=== PATIENT | male | born 1975 | race Caucasian/White ===

== ENCOUNTER 2023-12-09 04:25 | Day surgery (SDC) | payer OTHER ==
[2023-11-26 15:11] VITALS: BMI 25.9
[2023-12-09 08:49] VITALS: RESP 16
[2023-12-09 11:48] LABS: BASO % 0.4 % (0-2.0); EOS % 1.9 % (0-4.5); HEMATOCRIT 45.3 % (35.4-49); HEMOGLOBIN 15.8 GM/dL (11.7-16.9); LYMPH % 28.9 % (8-40); MCHC 34.8 g/dl (32.0-35.9); MEAN CELL VOLUME 91.9 fl (80-96); MEAN PLT VOLUME 7.2 fl (7.5-11.1); MONO % 8.6 % (3.8-10.2); NEUT % 60.2 % (42.8-82.8); PLATELET COUNT 265 10^3/uL (134-434); RBC 4.93 M/mm3 (4.00-5.60); RDW 12.5 % (11.9-15.9); WHITE BLOOD COUNT 7.5 K/mm3 (4.0-10.0)
[2023-12-09 11:54] LABS: INR 1.03 (0.83-1.09); PROTHROMBIN TIME (PATIENT) 11.8 SEC (9.7-13.0)
[2023-12-09 12:12] LABS: CHLORIDE 107 mmol/L (98-107); POTASSIUM 4.5 mmol/L (3.5-5.1); SODIUM 141 mmol/L (136-145)
[2023-12-09 12:14] LABS: ALBUMIN 3.8 g/dl (3.4-5.0); ANION GAP 3 mmol/L (4-13); BLOOD UREA NITROGEN 18.1 mg/dL (7-18); CALCIUM 9.2 mg/dL (8.5-10.1); CO2 31 mmol/L (21-32)
[2023-12-09 12:15] LABS: GLUCOSE,RANDOM 92 mg/dL (74-106)
[2023-12-09 12:16] LABS: SGOT/AST 20 U/L (15-37)
[2023-12-09 12:19] LABS: ALK PHOS 57 U/L (45-117); BILIRUBIN,TOTAL 1.4 mg/dL (0.2-1); TOT PROT 6.9 g/dl (6.4-8.2)
[2023-12-09 12:24] LABS: SGPT/ALT 50 U/L (13-61)
[2023-12-09 12:28] VITALS: BP 132/86; PULSE 61; TEMP 97.9
[2023-12-09 12:37] LABS: AMYLASE 42 U/L (25-115)
== END 2023-12-09 11:35 | disposition home or self-care (01) ==
LOC: JASU-ENDO 04:25
PROVIDERS: ATTEND Internal Medicine Gastroenterology
PROC: 0DB98ZX Excision of Duodenum, Via Natural or Artificial Opening Endoscopic, Diagnostic (ICD-10-PCS; 2023-12-09)
PROC: 0DB68ZX Excision of Stomach, Via Natural or Artificial Opening Endoscopic, Diagnostic (ICD-10-PCS; 2023-12-09)
PROC: 0DBP8ZX Excision of Rectum, Via Natural or Artificial Opening Endoscopic, Diagnostic (ICD-10-PCS; principal; 2023-12-09 10:00)
DX: Z12.11 Encounter for screening for malignant neoplasm of colon (principal); D12.8 Benign neoplasm of rectum; K21.00 Gastro-esophageal reflux disease with esophagitis, without bleeding; K29.80 Duodenitis without bleeding; K29.50 Unspecified chronic gastritis without bleeding; K29.40 Chronic atrophic gastritis without bleeding; K64.8 Other hemorrhoids; K92.1 Melena; R10.13 Epigastric pain
CPT/HCPCS: 36415; 80053; 82150; 83690; 85025; 85610; 86140; 88305-TC; 88342-TC